=== PATIENT | male | born 1990 | race Hispanic/Latino ===

== ENCOUNTER 2018-11-01 15:35 | Emergency (ER) | payer SELFPAY ==
[2018-11-01] MEDS ORDERED: TETANUS/DIPHTHERIA TOXOID [ADULT] 0.5 ML VIAL IM ONE (16:22)
== END 2018-11-01 16:39 | disposition home or self-care (01) ==
LOC: EDH 15:35
DX: S61.216A Laceration without foreign body of right little finger without damage to nail, initial encounter (principal); W22.8XXA Striking against or struck by other objects, initial encounter; Y93.89 Activity, other specified; Y92.89 Other specified places as the place of occurrence of the external cause; Y99.8 Other external cause status
CPT/HCPCS: 73130; 90471; 90714

== ENCOUNTER 2019-05-10 01:58 | Emergency (ER) | payer OTHER ==
[2019-05-10] MEDS ORDERED: LIDOCAINE HCL 1% 20 ML VIAL ONE (02:25)
[2019-05-10] MEDS ORDERED: ACETAMINOPHEN EXTRA STRENGTH 500 MG TABLET ONE (04:04)
[2019-05-10] MEDS ORDERED: ONDANSETRON ODT 4 MG TAB ONE (04:05)
== END 2019-05-10 04:10 | disposition home or self-care (01) ==
LOC: EDH 01:58
DX: S02.2XXA Fracture of nasal bones, initial encounter for closed fracture (principal); S61.210A Laceration without foreign body of right index finger without damage to nail, initial encounter; Y08.89XA Assault by other specified means, initial encounter; Y93.89 Activity, other specified; Y92.89 Other specified places as the place of occurrence of the external cause; Y99.8 Other external cause status
CPT/HCPCS: 12041; 70450; 70486; 72125; 73130

== ENCOUNTER 2020-03-31 20:05 | Emergency (ER) | payer SELFPAY | END 2020-03-31 20:56 | disposition home or self-care (01) | LOC: EDH 20:05 | DX: H81.399 Other peripheral vertigo, unspecified ear (principal); Z87.891 Personal history of nicotine dependence ==

== ENCOUNTER 2024-12-10 08:07 | Emergency (ER) | payer BC ==
[~2024-12-10] VITALS: Ht 177.8 cm; Wt 72.6 kg
[2024-12-10] MEDS ORDERED: AMOX500C2 PO (08:18)
[2024-12-10] MEDS ORDERED: FLUT16H NS (08:18)
--- NOTE | 2024-12-10 08:18 | ERN ---
General Chief Complaint: Flu Symptoms Stated Complaint: FLU LIKE SYMPTOMS X 2 DAYS Time Seen by MD: 08:08 Source: patient History of Present Illness Initial Comments Patient is a 34-year-old male coming in to be evaluated for URI symptoms. Per patient the symptoms began yesterday. He states he was drinking alcohol and started having the mild cough. He also states that he has a extensive history of sinusitis. No fever or chills. Past Medical History Past Medical History: Alcoholism, Asthma Past Surgical History: None ROS Dictation CONSTITUTIONAL: No chills, no fever, no weakness, no diaphoresis, no malaise. HEAD/FACE: No signs of trauma. EENT: No eye pain, no blurred vision, no tearing, no double vision, no ear pain, no ear discharge, no nose pain,nasal congestion, no throat pain, no throat swelling, no mouth pain. RESPIRATORY: No cough, no orthopnea, no SOB, no stridor, no wheezing. CARDIOVASCULAR: No chest pain, no edema, no palpitations, no syncope. GASTROINTESTINAL/ABDOMINAL: No abdominal pain, no constipation, no diarrhea, no nausea, no vomiting. GENITOURINARY: No abnormal discharge, no dysuria, no frequent urination, no hematuria. No complaints of pain in the genitals. MUSCULOSKELETAL: No back pain, no gout, no joint pain, no joint swelling, no muscle pain, no muscle stiffness, no neck pain. INTEGUMENTARY: No change in color, no change in hair/nails, no dryness, no lesion, no lumps, no rash. NEUROLOGICAL/PSYCH: No anxiety, not depressed, no emotional problem, no headache, no numbness, no pre-existing deficit, no history of seizures, no tremors, no weakness. HEMATOLOGIC/LYMPHATIC: Not anemic, no history of blood clots, no apparent bleeding, no bruising, glands not swollen. All Systems Negative, Except as Noted. Physical Exam Physical Exam Dictation VITAL SIGNS: Reviewed. GENERAL APPEARANCE: Alert, oriented x3, no acute distress, obese. HEAD AND FACE: Non-traumatic. Facial tenderness on palpation left maxillary sinus EYES: PERRL, pink conjunctivas, eyelid no trauma, anterior chamber clear. EARS: Pinnas intact and no signs of trauma or erythema. Ear canals clear and no discharge. TMs erythema. NOSE: No discharge, no bleeding. OROPHARYNX: Mouth normal, teeth no caries, tongue pink. Pharynx erythema. Tonsils no exudates, no abscesses noted. Mucous membrane moist. NECK: Supple, non-tender, no thyromegaly, no masses, no JVD, no bruits. BREAST: Deferred. CHEST: No tenderness, no crepitus, no paradoxical movement, no retractions. LUNGS: Clear, well-ventilated, symmetric, no rales, no wheezing, no rhonchi, no stridor, good breath sounds bilaterally. HEART: Regular rate, regular rhythm, no murmur, no gallops. VASCULAR: No peripheral edema. ABDOMEN: Soft, positive bowel sounds, nondistended, no guarding, nontender, no rebound, no masses no hepatomegaly, no splenomegaly, no Beltran's sign, no hernias. RECTAL: Deferred. GENITAL: Deferred. NEUROLOGICAL: Normal speech, gross motor function intact, gross sensory function intact. MUSCULOSKELETAL: Neck nontender, full range of motion, back nontender, full range of motion. EXTREMITIES: Nontender, full range of motion. SKIN: Color pink, dry, no turgor, no rash, no lacerations, no abrasions, no contusions. LYMPHATICS: Deferred. Results Laboratory and Microbiology Labs Reviewed?: Yes MDM MDM: Differential diagnosis: Sinusitis, URI, flu, COVID, strep Patient is a 34-year-old male coming in to be evaluated for URI symptoms. On physical exam patient was tenderness on the left maxillary sinus. Patient is a sinusitis. Patient will be discharged with a diagnosis of sinusitis symptomatic medication will be provided. ED Course Orders Procedure Category Date Status Time Dexamethasone 4mg/Ml PHA 12/10/24 Verified 1ml Vial (Dexametha 08:30 Vital Signs Date Time Temp Pulse Resp B/P (MAP) Pulse Ox O2 Delivery O2 Flow Rate FiO2 12/10/24 08:08 97.5 81 20 131/80 96 Room Air 0 DX & DISP Disposition: Discharge Departure Impression: Primary Impression: Sinusitis Condition: Stable Scripts Fluticasone Propionate (Flonase Nasal [place]) 50 Mcg/Actuation [place] 2 SPRAY NS DAILY, #16 GM 0 Refills Prov: POLLY CHAVEZ MD 12/10/24 Amoxicillin (Amoxicillin) 500 Mg Capsule 1 CAP PO TID for 10 Days, #30 CAP 0 Refills Prov: POLLY CHAVEZ MD 12/10/24 Additional Instructions: FOLLOW-UP WITH PRIMARY CARE PROVIDER IN 1 TO 2 DAYS. TAKE MEDICATIONS DIRECTED HERE IN THE EMERGENCY ROOM. OKAY TO CONTINUE HOME MEDICATIONS UNLESS OTHERWISE DISCUSSED DURING YOUR VISIT IN THE EMERGENCY ROOM TODAY. RETURN TO YOUR NEAREST EMERGENCY ROOM IF SYMPTOMS WORSEN OR IF THERE IS NO IMPROVEMENT. CALL 911 IF YOU NEED IMMEDIATE ASSISTANCE. TAKE TYLENOL [id number] NEEDED AND IF NO CONTRAINDICATIONS ARE PRESENT. INCREASE ORAL HYDRATION. A WOUND CULTURE OR URINE CULTURE WAS ORDERED HERE IN THE EMERGENCY ROOM DEPARTMENT PLEASE FOLLOW-UP WITH PRIMARY CARE PROVIDER AND ADVISE THEM TO GET REPEAT PORTS FROM OUR FACILITY. IF YOU HAD ANY JASPAL WRAP/SPLINTS THAT WERE APPLIED HERE, PLEASE DO NOT REMOVE THEM UNTIL YOU SEE YOUR PRIMARY CARE OR SPECIALTY. Referrals: Referrals: TONYA SWANN MD (PCP) Time of Disposition: 08:17 POLLY CHAVEZ MD Dec 10, 2024 08:18
[2024-12-10] MEDS: dexaMETHasone SOD PHOSPHATE 4 MG/ML 1ML VIAL IM ONE (09:29)
[2024-12-10 09:30] VITALS: BP 154/62; PULSE 87; RESP 19; TEMP 98.7; O2SAT 100
== END 2024-12-10 10:06 | disposition home or self-care (01) ==
LOC: EDH 08:07
DX: J32.9 Chronic sinusitis, unspecified (principal); J45.909 Unspecified asthma, uncomplicated
CPT/HCPCS: 99284; 96372; J1100

== ENCOUNTER 2025-09-12 04:03 | Emergency (ER) | payer BC ==
[~2025-09-12] VITALS: Ht 177.8 cm; Wt 73.5 kg
[~2025-09-12 04:03] MED LIST: AMOX500C2 PO; FLUT16H NS
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
[2025-09-12] MEDS: 0.9%NACL 1000ML 1,000 ML IV SCH (04:46)
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
[2025-09-12] MEDS ORDERED: M.V.I. IV [ADULT] 10 ML, FOLic ACID 5 MG/ML VIAL 1 MG, THIAMINE HCL 100 MG in 0.9%NACL ... IV STA (06:02)
[2025-09-12] MEDS: CLINDAMYCIN 150 MG CAP PO ONE (06:10)
[2025-09-12] MEDS ORDERED: CLIN-141 PO (06:16)
[2025-09-12] MEDS ORDERED: METH4TAB PO (06:16)
[2025-09-12] MEDS: M.V.I. IV [ADULT] 10 ML, FOLic ACID 5 MG/ML VIAL 1 MG, THIAMINE HCL 100 MG in 0.9%NACL ... IV SCH (06:41)
[2025-09-12 06:54] VITALS: BP 114/73; PULSE 80; RESP 18; TEMP 98; O2SAT 99
--- NOTE | 2025-09-12 09:29 | NUR ---
PT COMPLETED IV BANANA BAG AND IV DISCONTINUED. PT A&OX3,NAD,AMBULATING WITHOUT ASSISTANCE, STEADY GAIT, WALKED OUT THE DC DOOR.
== END 2025-09-12 09:30 | disposition home or self-care (01) ==
LOC: EDH 04:03
DX: S02.31XA Fracture of orbital floor, right side, initial encounter for closed fracture (principal); S02.2XXA Fracture of nasal bones, initial encounter for closed fracture; S06.0XAA Concussion with loss of consciousness status unknown, initial encounter; F10.129 Alcohol abuse with intoxication, unspecified; J45.909 Unspecified asthma, uncomplicated; Y90.6 Blood alcohol level of 120-199 mg/100 ml; Y04.2XXA Assault by strike against or bumped into by another person, initial encounter; Y93.89 Activity, other specified; Y92.89 Other specified places as the place of occurrence of the external cause; Y99.8 Other external cause status
CPT/HCPCS: 99284; 70450; 96365; 96366; 36415; 70480; J7030 ×2; J3411; J3490; J8540